=== PATIENT | female | born 1935 | race African-American/Black ===

== ENCOUNTER 2018-07-22 10:00 | Inpatient (IN) ==
[2018-08-05] MEDS ORDERED: Chlorhexidine 4% Topical 120 APPLIC/120 ML Bottle TOPICAL SCH (08:30)
[2018-08-05] MEDS ORDERED: Bupivacaine Liposomal PF 1.3% Inj 20 ML Vial ONE (08:58)
[2018-08-05] MEDS ORDERED: Sodium Chlor 0.9% Inj 500 ML IV.CONT ONE (09:00)
[2018-08-05] MEDS ORDERED: Metoprolol Tartrate 25 MG Tablet PO ONE (09:00)
[2018-08-05] MEDS ORDERED: Chlorhexidine Gluconate 2% 1 Pack (2 Cloths) TOPICAL ONE (09:00)
[2018-08-05] MEDS ORDERED: TRANEXAMIC ACID IV.SIG SCH ×2 (09:00→12:00)
[2018-08-05] MEDS ORDERED: Sodium Chlor 0.9% Inj 80 ML, Bupivacaine Liposo PF 1.3% Inj 20 ML P-ARTICULR SCH ×2 (09:00)
[2018-08-05] MEDS ORDERED: SODIUM CHLOR 0.9% IV.SIG SCH ×2 (09:00→12:00)
[2018-08-05] MEDS ORDERED: Vancomycin Inj 1,250 MG in Sodium Chlor 0.9% Inj 250 ML IV.SIG SCH (09:00)
[2018-08-05] MEDS ORDERED: Bupivacaine Liposomal PF 1.3% Inj 20 ML Vial NERV BLOCK ONE (09:15)
[2018-08-05] MEDS ORDERED: Clindamycin Inj 600 MG/4 ML Vial ONE ×2 (09:43→17:08)
[2018-08-05] MEDS ORDERED: Post-op Orders (for Pharmacy) OTHER STA (09:53)
[2018-08-05] MEDS ORDERED: Tranexamic Acid Inj 0 MG in Sodium Chlor 0.9% Inj 100 ML IV.SIG ONE (09:53)
[2018-08-05] MEDS ORDERED: Bisacodyl 10 MG Supp RECTAL PRN (09:53)
[2018-08-05] MEDS ORDERED: Acetaminophen 325 MG Tablet PO PRN (09:53)
[2018-08-05] MEDS ORDERED: Morphine Inj 4 MG/ML Vial IV.PUSH PRN (09:53)
[2018-08-05] MEDS ORDERED: Aluminum/Magnesium/Simethacone Susp 30 ML UDC PO PRN (09:53)
[2018-08-05] MEDS ORDERED: Clindamycin 600 mg/NS Premix 600 MG/50 ML PIGGYBACK IV.SIG SCH (10:15)
[2018-08-05] MEDS ORDERED: fentaNYL Citrate Inj 250 MCG/5 ML Ampul ONE (10:21)
[2018-08-05] MEDS ORDERED: fentaNYL Citrate Inj 100 MCG/2 ML Ampul ONE (10:21)
[2018-08-05] MEDS ORDERED: Famotidine PF Inj 20 MG/2 ML Vial ONE (10:21)
[2018-08-05] MEDS ORDERED: Ketamine Inj 50 MG/5 ML Syringe IV.PUSH ONE (10:30)
[2018-08-05] MEDS ORDERED: Lidocaine PF 1% Inj 5 ML Syringe INFILTRATN ONE (10:37)
[2018-08-05] MEDS ORDERED: Neostigmine Inj 5 MG/5 ML Syringe IV.PUSH ONE (10:37)
[2018-08-05] MEDS ORDERED: Phenylephrine/NS 1000 MCG/10ML Syringe IV.PUSH ONE (10:37)
[2018-08-05] MEDS ORDERED: Glycopyrrolate Inj 1 MG/5 ML Syringe IV.PUSH ONE (10:37)
[2018-08-05] MEDS ORDERED: hydrALAZINE HCl Inj 20 MG/ML Vial IV.PUSH ONE (10:37)
--- NOTE | 2018-08-05 12:57 | P.DCO ---
- Physical Therapy Physical Therapy: Gait training Knee: Total knee, Protocol: Right, Gait training, Full weight bearing Right Lower Extremity Weight Bearing: Weight bearing as tolerated Right Lower Extremity Range of Motion: Active ROM (Active, active assisted, passive range of motion. Range of motion goal is 0 degrees extension to 130 degrees. Range of motion in the operating room was 0 degrees extension to 140 degrees of flexion.) - Nursing Nursing: Dressing changes Dressing changes: Daily dressing change, Coverderm/Primapore Additional instructions: Do not remove Dermabond Prineo. - Certification Need for Home Health services: I have seen patient Heather Guardado on 08/05/18. My clinical findings support the need for the requested home health care services because: Need for Home Health Services: Deconditioned with increased weakness, Limited ability to care for self, High risk of falls Homebound Certification: I certify that my clinical findings support that this patient is homebound because: Homebound Certification: Post-op weakness, Unsteady gait/balance, Unsafe to leave home unassisted
--- NOTE | 2018-08-05 13:05 | P.OP ---
- Preoperative Diagnosis (1) Rheumatoid arthritis involving right knee - Postoperative Diagnosis (1) Rheumatoid arthritis involving right knee Date of procedure: 08/05/18 Procedure: Right total knee arthroplasty using [place] Triathlon prosthesis (uncemented) Anesthesia: GETA, regional (Adductor canal block), local (Exparel) Surgeon: Oziel Lewis MD Computer Game Tester: BURKE Stephenson Estimated blood loss (mL): 250 Pathology: none sent Operation and Findings: Indications and Findings: This 82-year-old woman has had long-standing rheumatoid arthritis in the knees and other sites. She has had right knee pain at least for the last 2 years. Her ambulation tolerance is come to 2-3 blocks because of the pain. She is not relieved by the use of ambulatory aids. She has been under the care of her rheumatoid arthritis by safety representative giving her anti-inflammatory agents, methotrexate and other treatments. She has not improved with exercise or activity modification and either. Physical findings showed genu valgum with lateral laxity and crepitation throughout the entire range of motion. There is an effusion. X-rays showed severe arthritis with loss of articular cartilage to [id number] on the lateral compartment and to lesser extent the medial compartment. There is some osteopenia. There is some subchondral sclerosis particularly laterally. There are osteophytes. Operative findings: There is significant arthritis in the knee with loss of articular cartilage to [id number] in the lateral compartment and to a lesser extent the medial compartment. There is also patellofemoral involvement. There was pannus evident. The prosthesis used was a [place] Triathlon prosthesis. The femur was a size 3, cruciate retaining, uncemented. The tibial baseplate was a size 3 Tritanium with a 9 mm, cruciate retaining, X3 polyethylene spacer. The patella was a size 32 mm asymmetric Tritanium backed. The patient was brought to the clean-air operating suite after administration of a regional anesthetic by adductor canal block. A spinal anesthetic was administered. The position was supine with a small bolster under the hip on the operative side. A pneumatic tourniquet was applied to the upper thigh. The lower extremity was prepped with alcohol, Hibiclens and ChloraPrep and draped in the usual manner with the knee draped free. An appropriate timeout procedure was carried out. An incision was made from about 3 fingerbreadths above the superior medial pole of patella down the tibial tubercle on the medial side. The incision was deepened through the subcutaneous tissue to the retinacular structures which were exposed medially and laterally. A medial retinacular incision was made from the superior medial pole of patella down the tibial tubercle and up into the quadriceps tendon, splitting it longitudinally in the medial one third. The patella was reflected. The infrapatellar fat pad was debulked. The anterior cruciate ligament was excised. Medial and lateral meniscectomies were initiated. Fenestrations were made in the distal femur and proximal tibia for intramedullary referencing guides. The distal femoral cutting guide and jig were assembled for a 5, 8 mm cut. When this was fit into position,the cutting block was stabilized with pins. The jig was removed. The distal femoral cut was completed with the oscillating saw. The sizing guide was positioned in place along Whitesides line and the epicondylar axis and stabilized with pins. The femoral size was determined as noted above. The 4-in-1 cutting block was positioned in place. Anterior and posterior cuts were made followed by posterior and anterior chamfer cuts taking care to prevent injury to ligamentous structures. Osteophytes were trimmed from the distal femur. A bone plug was placed into the fenestration of the distal femur. The proximal tibia was exposed. The medial and lateral meniscectomies were completed. The proximal tibial cutting guide was positioned in place and stabilized with a pin for rotation. The depth of cut was verified with a stylus off the high side. The cutting block was stabilized with pins. The jig was removed. The depth of cut was verified and adjusted appropriately with the use of the spacer block. The proximal tibial cut was made with the oscillating saw taking care to prevent injury to neurovascular and ligamentous structures. Proximal tibial bone was removed. Local anesthetic was administered with Exparel in the posterior capsule. The tibial baseplate trial was positioned in place. After verifying the appropriate size, the base plate trial was positioned in place along with its spacer. The femoral component was impacted into place. The alignment was checked. The tibial baseplate was pinned in place on the tibia. Attention was directed to the patella. The patella drill guide was positioned in place for the appropriate sized patella. Patellar drilling was then carried out. The trial patella was positioned in place. The knee was taken through a range of motion which was easily 0 extension to 140 degrees. The patella trial was removed. The femoral drill holes were made. The femoral trials were removed. The tibial spacer was removed. A bone plug was placed into the proximal tibia. The tibial punch was impacted through the proximal tibial punch guide. This was all removed followed by placement of the tibial drill guide. The tibial drill holes were made. The guide was removed. The cut ends of bone were cleaned with pulse lavage. The tibial baseplate was impacted into place and seated appropriately. The spacer was inserted. The the femoral component was impacted into place and seated appropriately. The patella component was seated with the patellar vice and tightened appropriately. The knee was taken through a range of motion which was comparable to the previous range of motion with excellent stability in flexion and extension and appropriate patellofemoral tracking. The remainder of the Exparel was injected throughout the knee as a local anesthetic. Drains were brought out the superior lateral aspect of the suprapatellar pouch. Wound closure commenced using 0 Vicryl interrupted [id number] sutures for the capsular and fascial structures, 2-0 Vicryl interrupted simple sutures with buried knots for the subcutaneous tissues and 4-0 Monocryl, continuous subcuticular closure for the skin. The wound was dressed with Dermabond Prineo followed by a dry sterile dressing. Sterile soft roll with a cooling pad and Earnest bandage from the base of the toes to mid thigh were applied. Patient was transferred from the operating room to the recovery room in satisfactory condition having tolerated procedure well. Counts were correct. Specimens: None. Estimated blood loss: 250 mL
[2018-08-05] MEDS ORDERED: *morphine SULFATE 4 MG/ML PERIprocedure ONLY ONE (13:52)
[2018-08-05] MEDS: Ketorolac Inj 30 MG/ML (IVP) Vial IV.PUSH SCH ×2 (14:00→20:29)
--- NOTE | 2018-08-05 14:22 | XR ---
EXAM DATE: 08/05/2018 9:51 AM EDT AGE/SEX: 82 years / Female INDICATIONS: Post-op right knee. CLINICAL DATA: This is the patient's initial encounter. Patient reports that signs and symptoms have been present for 1 day and indicates a pain score of 5/10. MEDICAL/SURGICAL HISTORY: None. None. COMPARISON: No prior exams available for comparison. FINDINGS: Right knee prosthesis in place. There is good position and alignment of the bony structures. The bony structures are grossly intact. Postsurgical changes are demonstrated. CONCLUSION: Good position and alignment of the knee prosthesis. Electronically signed by: Robert Muñoz MD 08/05/2018 2:20 PM EDT
--- NOTE | 2018-08-05 15:42 | P.CON ---
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 Lewis. Patient was seen in PACU. She appears to not acute distress. Says the pain at the surgical site is fairly controlled. She denies any chest pain or shortness of breath, no fever or chills, no cough. No urinary complaints. No nausea vomiting no diarrhea constipation no abdominal pain. Awaiting to go to Ortho floor. No concerns at this time. Review of Systems All other systems reviewed negative except as stated in HPI PMFSH - History History Provided By: Patient - Medical History Medical History: Medical History (Last Reviewed 08/05/18 @ 18:01 by Rabia Garcia MD) High cholesterol History of CVA (cerebrovascular accident) Hx of hysterectomy Hypertension Joint stiffness Pain in right knee Rheumatoid arthritis Wears glasses - Surgical History Surgical History: Surgical History (Last Reviewed 08/05/18 @ 18:01 by Rabia Garcia MD) History of total replacement of both hip joints Hx of rotator cuff surgery - Family History Family History: Family History (Last Updated 08/05/18 @ 18:01 by Rabia Garcia MD) Other Diabetes - Tobacco History Second Hand Smoke Exposure: No Tobacco Use In Past 30 Days: No Smoking Status: Former smoker - Alcohol History How Often Do You Have a Drink Containing Alcohol: Monthly or less - Substance Use History Substance History: No History of Abuse - Travel History Recent Travel in the [place] Within the Last 8 Weeks: No Recent Travel Out of the Country Within the Last 8 Weeks: No Medications and Allergies Active Medications: Active Medications Acetaminophen (Tylenol) 650 mg PO Q6H PRN PRN Reason: Pain Less Than 3 On Scale Hydrocodone Bitart/Acetaminophen ([place] 7.5/325) 1 tab PO Q4H PRN PRN Reason: PAIN SCALE 4 TO 6 MODERATE Hydrocodone Bitart/Acetaminophen ([place] 7.5/325) 2 tab PO Q6H PRN PRN Reason: PAIN SCALE 7 TO 10 SEVERE Al Hydrox/Mg Hydrox/Simethicone (Mag-Al Plus Susp Liq) 30 ml PO Q6H PRN PRN Reason: INDIGESTION Al Hydroxide/Mg Hydroxide (Milk Of Malika Liq) 30 ml PO BID PRN PRN Reason: Mild Constipation Aspirin (Aspirin Chew) 81 mg PO BID [facility] Bisacodyl (Dulcolax Supp) 10 mg RECTAL DAILY PRN PRN Reason: SEVERE CONSITIPATION Chlorhexidine Gluconate (Hibiclens 4% Topical) 1 applicatio TOPICAL ONCE [facility] Stop: 08/09/18 08:29 Diphenhydramine HCl (Benadryl) 25 mg PO Q6H PRN PRN Reason: ITCHING Folic Acid (Folic Acid) 1 mg PO DAILY [facility] Tranexamic Acid 787 mg/ Sodium (Chloride) 107.87 mls @ 200 mls/hr IV.SIG ONCE [facility] Stop: 08/06/18 08:59 Last Infusion: 08/05/18 11:36 Dose: Infused Vancomycin HCl 1,250 mg/ (Sodium Chloride) 262.5 mls @ 250 mls/hr IV.SIG INTENSIVE CARE UNIT NURSE [facility] Stop: 08/08/18 08:59 Last Infusion: 08/05/18 11:36 Dose: Infused Lactated Ringer's (Lr 1000 Ml Inj) 1,000 mls @ 30 mls/hr IV.CONT .Q24H ONE Stop: 08/06/18 08:59 Last Admin: 08/05/18 09:07 Dose: 30 mls/hr Sodium Chloride (Ns Inj) 500 mls @ 30 mls/hr IV.CONT .[id number] ONE Stop: 08/06/18 01:39 Lactated Ringer's (Lr 1000 Ml Inj) 1,000 mls @ 80 mls/hr IV.CONT .[id number] [facility] Last Admin: 08/05/18 13:50 Dose: 80 mls/hr Clindamycin/Sodium Chloride (Cleocin 600 Mg/Ns Premix) 600 mg in 50 mls @ 100 mls/hr IV.SIG Q6H [facility] Stop: 08/06/18 11:29 Clindamycin/Sodium Chloride (Cleocin 600 Mg/Ns Premix) 600 mg in 50 mls @ 100 mls/hr IV.SIG INTENSIVE CARE UNIT NURSE [facility] Stop: 08/05/18 18:00 Ketorolac Tromethamine (Toradol Inj) 15 mg IV.PUSH Q6H [facility] Stop: 08/07/18 08:01 Last Admin: 08/05/18 14:00 Dose: 15 mg Lactulose (Lactulose Liq) 30 ml PO DAILY PRN PRN Reason: SEVERE CONSITIPATION Miscellaneous Information ([facility] Nursing Information) 0 each OTHER UNSCH PRN PRN Reason: SEE LABEL COMMENTS Stop: 08/06/18 13:15 Morphine Sulfate (Morphine Inj) 2 mg IV.PUSH Q3H PRN PRN Reason: BREAKTHROUGH PAIN Multivitamins (Theragran) 1 tab PO DAILY [facility] Ondansetron HCl (Zofran Odt) 4 mg PO Q6H PRN PRN Reason: NAUSEA OR VOMITING Patient Own Medication (Patient Own Medication) 0 each PO DAILY [facility] Pt Own Med ( (Valsartan 80 Mg)) 0 each PO DAILY [facility] Pravastatin Sodium (Pravachol) 40 mg PO DAILY [facility] Senna/Docusate Sodium (Wanda-Colace) 1 tab PO BID [facility] Sennosides (Senokot) 17.2 mg PO BID PRN PRN Reason: Moderate Constipation Sodium Chloride (Ns Flush) 2 ml IV.FLUSH PRN PRN PRN Reason: FLUSH AFTER USING IV ACCESS Sodium Chloride (Ns Flush) 2 ml IV.FLUSH BID [facility] Vitamin D (Vitamin D3) 2,000 unit PO DAILY [facility] Zolpidem Tartrate (Ambien) 5 mg PO HS PRN PRN Reason: INSOMNIA Allergies Allergy/AdvReac Type Severity Reaction Status Date / Time penicillin G Allergy Severe SOB; HIVES Verified 08/05/18 08:36 codeine Allergy Intermediate ONLY IN Verified 07/10/18 08:19 HIGH DOSES Home Medications Medication Instructions Recorded Confirmed Type cholecalciferol (vitamin D3) 2,000 unit PO DAILY 07/10/18 08/05/18 History [Vitamin D3] echinacea 380 mg PO BID 07/10/18 08/05/18 History folic acid 1 mg PO DAILY 07/10/18 08/05/18 History lovastatin 40 mg PO DAILY 07/10/18 08/05/18 History methotrexate sodium 7.5 mg PO QWEEK 07/10/18 08/05/18 History [id number]-[id number]-FA-vit K 1 tab PO DAILY 07/10/18 08/05/18 History [Adults Multivitamin] potassium 99 mg PO DAILY 07/10/18 08/05/18 History valsartan [Diovan] 80 mg PO DAILY 07/10/18 08/05/18 History Physical Exam Vital signs: Vital Signs 08/05/18 09:04 08/05/18 13:17 08/05/18 14:25 Temperature 97.6 F Pulse Rate 60 104 H Respiratory Rate 16 17 Blood Pressure 172/80 H Pulse Oximetry 100 100 100 Intake & Output 08/04/18 08/05/18 08/05/18 18:59 06:59 18:59 Intake Total 1600.37 / 1600.37 Output Total 350 / 350 Balance 1250.37 / 1250.37 Weight 78.7 kg Intake: IV 370.37 / 370.37 Cyklokapron Inj 787 MG In NS 107.87 / 107.87 Inj 100 ML @ 200 mls/hr IV.SIG ONCE [facility] Rx#:[id number] Vancomycin Inj 1,250 MG In NS 262.5 / 262.5 Inj 250 ML @ 250 mls/hr IV.SIG INTENSIVE CARE UNIT NURSE [facility] Rx#:[id number] Anesthesia Amount 1230 / 1230 Output: Estimated Blood Loss 250 / 250 Wound Drainage 100 / 100 # 1 Right Knee Hemovac 100 / 100 Other: Weight On Admission 78.7 kg Narrative: GENERAL: Very pleasant 82-year-old female well-nourished well-developed appears to not acute distress. SKIN: Warm and dry. HEAD: Atraumatic. Normocephalic. EYES: Pupils equal and round. No scleral icterus. No injection or drainage. ENT: No nasal bleeding or discharge. Mucous membranes pink and moist. NECK: Trachea midline. No JVD. CARDIOVASCULAR: Regular rate and rhythm. RESPIRATORY: No accessory muscle use. Clear to auscultation. Breath sounds equal bilaterally. GASTROINTESTINAL: Abdomen soft, non-tender, nondistended. Hepatic and splenic margins not palpable. MUSCULOSKELETAL: Right knee status post surgery dressing CDI, neurovascular intact. Extremities without clubbing, cyanosis, or edema. No obvious deformities. NEUROLOGICAL: Awake and alert. No obvious cranial nerve deficits. Motor grossly within normal limits. Five out of 5 muscle strength in the arms and legs. Normal speech. PSYCHIATRIC: Appropriate mood and affect; insight and judgment normal. Assessment and Plan - Plan Right knee pain status post right knee total replacement. Management per orthopedic doctor. Monitor vital signs. Monitor H&H after surgery. History of CVA with no residual deficit. History of rheumatoid arthritis. Hypertension, hyperlipidemia. Resume home medications as appropriate. Monitor H&H after surgery. Monitor vital signs. Thank you for this consultation.
[2018-08-05] MEDS: Clindamycin 600 mg/NS Premix 600 MG/50 ML PIGGYBACK IV.SIG SCH ×2 (17:10→22:36)
[2018-08-05] MEDS: Senna/Docusate Sodium 8.6/50 MG Tablet PO SCH (20:30)
[2018-08-05] MEDS ORDERED: ECHINACEA 380 MG PO SCH (21:00)
[2018-08-05] MEDS: Zolpidem Tartrate 5 MG Tablet PO PRN (22:35)
[2018-08-06] MEDS: Clindamycin 600 mg/NS Premix 600 MG/50 ML PIGGYBACK IV.SIG SCH ×2 (05:02→10:16)
[2018-08-06] MEDS: Ketorolac Inj 30 MG/ML (IVP) Vial IV.PUSH SCH ×4 (05:02→20:40)
--- NOTE | 2018-08-06 06:10 | P.PNOP ---
Subjective Interval history: Postop day #1 She is doing well. She has minimal complaints related to the knee at this time. Physical therapy reports that the ambulation distance was 60 feet. The range of motion was 0 extension to 60 of flexion. Physical Exam Vital signs: Vital Signs 08/05/18 06:45 08/05/18 09:04 08/05/18 13:17 Temperature 98.0 F 97.6 F Pulse Rate 85 60 104 H Respiratory Rate 14 16 Blood Pressure 177/81 H 172/80 H Pulse Oximetry 95 100 100 08/05/18 13:30 08/05/18 13:45 08/05/18 14:00 Temperature Pulse Rate 80 72 67 Respiratory Rate 16 16 18 Blood Pressure 157/71 H 141/67 H 138/65 Pulse Oximetry 97 97 95 08/05/18 14:15 08/05/18 14:25 08/05/18 14:30 Temperature Pulse Rate 68 68 Respiratory Rate 18 17 18 Blood Pressure 138/67 141/69 H Pulse Oximetry 94 L 100 94 L 08/05/18 14:45 08/05/18 15:00 08/05/18 15:30 Temperature Pulse Rate 67 70 Respiratory Rate 18 18 18 Blood Pressure 128/65 137/67 Pulse Oximetry 96 95 100 08/05/18 16:00 08/05/18 16:30 08/05/18 17:00 Temperature 97.8 F Pulse Rate 72 89 Respiratory Rate 19 19 Blood Pressure 141/72 H 159/89 H Pulse Oximetry 95 96 95 08/05/18 17:30 08/05/18 20:00 08/06/18 00:00 Temperature 98.9 F 98.8 F Pulse Rate 87 91 H Respiratory Rate 18 18 Blood Pressure 173/83 H 173/83 H Pulse Oximetry 99 97 97 08/06/18 02:08 Temperature Pulse Rate Respiratory Rate 17 Blood Pressure Pulse Oximetry Intake & Output 08/05/18 08/05/18 08/06/18 06:59 18:59 06:59 Intake Total 1650.37 / 1650.37 1050 / 1050 Output Total 350 / 350 180 / 180 Balance 1300.37 / 1300.37 870 / 870 Weight 78.7 kg Intake: IV 420.37 / 420.37 1050 / 1050 LR 1000 mL Inj 1,000 ML @ 80 1000 / 1000 mls/hr IV.CONT .[id number] [facility] Rx# :[id number] Cleocin 600 mg/NS Premix 600 mg 50 / 50 50 / 50 In 50 ml @ 100 mls/hr IV.SIG Q6H [facility] Rx#:[id number] Cyklokapron Inj 787 MG In NS 107.87 / 107.87 Inj 100 ML @ 200 mls/hr IV.SIG ONCE [facility] Rx#:[id number] Vancomycin Inj 1,250 MG In NS 262.5 / 262.5 Inj 250 ML @ 250 mls/hr IV.SIG [facility] [employer] [facility] Rx#:[id number] Anesthesia Amount 1230 / 1230 Output: Estimated Blood Loss 250 / 250 Wound Drainage 100 / 100 180 / 180 # 1 Right Knee Hemovac 100 / 100 180 / 180 Other: # Voids 1 # Incontinent Voids 1 Date of Last Bowel Movement 08/05/18 Weight On Admission 78.7 kg Narrative: She is resting comfortably, supine in bed. The dressing is dry and intact. The neurovascular status is intact. She demonstrates that she can easily move the knee and flex it without much difficulty. Results - Labs Laboratory Results - last 24 hr 08/05/18 08:43 Blood Type B Positive Blood Type Recheck Not needed Antibody Screen Negative - Imaging Impressions Knee X-Ray 08/05/18 09:51 CONCLUSION: Good position and alignment of the knee prosthesis. - Procedures Right total knee arthroplasty using [place] Triathlon prosthesis (uncemented) on 08/06/2018 Assessment and Plan - Ortho Post Op Day # 1 - Problem List (1) Status post total right knee replacement not using cement Code(s): Z96.651 - Presence of right artificial knee joint Status: Acute Onset Date: ~08/05/18 Plan: Continue postop care and PT. - Assessment and Plan Condition: Good. Orthopedically stable. DVT prophylaxis: TEDs, aspirin, sequentials. Discharge plans: Home with home health care. An appointment was scheduled through the office. Prescriptions: [place] 7.5/325; Patient is having significant pain caused by a total knee arthroplasty which will last more than 3 days. Trial of Tylenol has not helped. I believe that it is medically necessary to treat patients pain because it is affecting patients ability to participate in postoperative rehabilitation and perform activities of daily living in a comfortable and efficient manner.
[2018-08-06 07:14] LABS: Hematocrit 29.1 % (35.0-46.0); Hemoglobin 9.6 gm/dL (11.6-15.3)
[2018-08-06] MEDS: Folic Acid 1 MG Tablet PO SCH (08:42)
[2018-08-06] MEDS: Senna/Docusate Sodium 8.6/50 MG Tablet PO SCH ×2 (08:42→20:40)
[2018-08-06] MEDS ORDERED: VALSARTAN 80 MG PO SCH (09:00)
--- NOTE | 2018-08-06 14:47 | P.PN ---
Subjective Interval history: Patient feels much better today no more pain in her knee. No nausea vomiting no diarrhea or constipation. No cough fever or chills. Improving with physical therapy. Possible discharge tomorrow. Physical Exam Vital signs: Vital Signs 08/05/18 15:00 08/05/18 15:30 08/05/18 16:00 Temperature Pulse Rate 70 72 Respiratory Rate 18 18 19 Blood Pressure 137/67 141/72 H Pulse Oximetry 95 100 95 08/05/18 16:30 08/05/18 17:00 08/05/18 17:30 Temperature 97.8 F Pulse Rate 89 Respiratory Rate 19 Blood Pressure 159/89 H Pulse Oximetry 96 95 99 08/05/18 20:00 08/06/18 00:00 08/06/18 02:08 Temperature 98.9 F 98.8 F Pulse Rate 87 91 H Respiratory Rate 18 18 17 Blood Pressure 173/83 H 173/83 H Pulse Oximetry 97 97 08/06/18 04:00 08/06/18 05:32 08/06/18 08:00 Temperature 99.2 F 98.8 F Pulse Rate 73 75 Respiratory Rate 20 17 16 Blood Pressure 118/57 L 135/73 Pulse Oximetry 94 L 97 08/06/18 12:00 Temperature 98.4 F Pulse Rate 74 Respiratory Rate 14 Blood Pressure 115/56 L Pulse Oximetry 98 Intake & Output 08/05/18 08/06/18 08/06/18 18:59 06:59 18:59 Intake Total 1650.37 / 1650.37 1100 / 1100 50 / 50 Output Total 350 / 350 260 / 260 Balance 1300.37 / 1300.37 840 / 840 50 / 50 Weight 78.7 kg Intake: IV 420.37 / 420.37 1100 / 1100 50 / 50 LR 1000 mL Inj 1,000 ML @ 80 1000 / 1000 mls/hr IV.CONT .[id number] [facility] Rx# :[id number] Cleocin 600 mg/NS Premix 600 mg 50 / 50 100 / 100 50 / 50 In 50 ml @ 100 mls/hr IV.SIG Q6H [facility] Rx#:[id number] Cyklokapron Inj 787 MG In NS 107.87 / 107.87 Inj 100 ML @ 200 mls/hr IV.SIG ONCE [facility] Rx#:[id number] Vancomycin Inj 1,250 MG In NS 262.5 / 262.5 Inj 250 ML @ 250 mls/hr IV.SIG ON SITE [employer] [facility] Rx#:[id number] Anesthesia Amount 1230 / 1230 Output: Estimated Blood Loss 250 / 250 Wound Drainage 100 / 100 260 / 260 # 1 Right Knee Hemovac 100 / 100 260 / 260 Other: # Voids 1 # Incontinent Voids 1 Date of Last Bowel Movement 08/05/18 Weight On Admission 78.7 kg Narrative: GENERAL: Very pleasant 82-year-old female well-nourished well-developed appears to not acute distress. CARDIOVASCULAR: Regular rate and rhythm. RESPIRATORY: No accessory muscle use. Clear to auscultation. Breath sounds equal bilaterally. GASTROINTESTINAL: Abdomen soft, non-tender, nondistended. Hepatic and splenic margins not palpable. MUSCULOSKELETAL: Right knee status post surgery dressing CDI, neurovascular intact. Extremities without clubbing, cyanosis, or edema. No obvious deformities. NEUROLOGICAL: Awake and alert. No obvious cranial nerve deficits. Motor grossly within normal limits. Five out of 5 muscle strength in the arms and legs. Normal speech. PSYCHIATRIC: Appropriate mood and affect; insight and judgment normal. Results - Labs CBC & Chem 7: 08/06/18 06:54 Laboratory Results - last 24 hr 08/06/18 06:54 Hgb 9.6 L Hct 29.1 L - Procedures Right total knee arthroplasty using [place] Triathlon prosthesis (uncemented) on 08/06/2018 Assessment and Plan - Plan Right knee pain status post right knee total replacement. Management per orthopedic doctor. Monitor vital signs. Monitor H&H after surgery. H/H stable. Patient has a h/o anemia History of CVA with no residual deficit. History of rheumatoid arthritis. Hypertension, hyperlipidemia. Resume home medications as appropriate. Monitor H&H after surgery, stable . Monitor vital signs. Thank you for this consultation. Appears stable medically. Plan to discharge tomorrow. Patient to follow-up with PCP and consultants as outpatient. Hospitalist will sign off.
[2018-08-06] MEDS: Zolpidem Tartrate 5 MG Tablet PO PRN (23:29)
[2018-08-07] MEDS: Ketorolac Inj 30 MG/ML (IVP) Vial IV.PUSH SCH ×2 (02:36→08:26)
--- NOTE | 2018-08-07 06:07 | P.PNOP ---
Subjective Interval history: Postop day #2 She is doing well. She has minimal complaints related to the knee at this time. She is very happy with the progress. She feels that she is ready to go home. Physical therapy reports that the ambulation distance was 120 feet. The range of motion was 0 degrees extension to 84 degrees of flexion. Physical Exam Vital signs: Vital Signs 08/06/18 08:00 08/06/18 12:00 08/06/18 16:00 Temperature 98.8 F 98.4 F 97.9 F Pulse Rate 75 74 65 Respiratory Rate 16 14 14 Blood Pressure 135/73 115/56 L 118/63 Pulse Oximetry 97 98 98 08/06/18 20:00 08/06/18 21:10 08/06/18 22:30 Temperature 98.4 F Pulse Rate 67 Respiratory Rate 18 17 17 Blood Pressure 122/59 L Pulse Oximetry 96 08/07/18 00:00 08/07/18 04:00 Temperature 98.2 F 98.3 F Pulse Rate 78 73 Respiratory Rate 18 17 Blood Pressure 131/63 117/58 L Pulse Oximetry 98 98 Intake & Output 08/06/18 08/06/18 08/07/18 06:59 18:59 06:59 Intake Total 1100 / 1100 1050 / 1050 1060 / 1060 Output Total 260 / 260 90 / 90 Balance 840 / 840 960 / 960 1060 / 1060 Intake: IV 1100 / 1100 1050 / 1050 LR 1000 mL Inj 1,000 ML @ 80 1000 / 1000 1000 / 1000 mls/hr IV.CONT .[id number] [facility] Rx# :[id number] Cleocin 600 mg/NS Premix 600 mg 100 / 100 50 / 50 In 50 ml @ 100 mls/hr IV.SIG Q6H [facility] Rx#:[id number] Oral 1060 / 1060 Output: Wound Drainage 260 / 260 90 / 90 # 1 Right Knee Hemovac 260 / 260 90 / 90 Other: # Voids 2 Date of Last Bowel Movement 08/05/18 Narrative: She is resting comfortably, supine in bed. The dressing is dry and intact. Her neurovascular status is intact. Results - Labs CBC & Chem 7: 08/06/18 06:54 Laboratory Results - last 24 hr 08/06/18 06:54 Hgb 9.6 L Hct 29.1 L - Procedures Right total knee arthroplasty using [place] Triathlon prosthesis (uncemented) on 08/06/2018 Assessment and Plan - Assessment and Plan Condition: Good. Orthopedically stable. DVT prophylaxis: TEDs, aspirin, sequentials. Discharge plans: Home with home health care. An appointment was scheduled through the office. Prescriptions: [place] 7.5/325; Patient is having significant pain caused by a total knee arthroplasty which will last more than 3 days. Trial of Tylenol has not helped. I believe that it is medically necessary to treat patients pain because it is affecting patients ability to participate in postoperative rehabilitation and perform activities of daily living in a comfortable and efficient manner.
[2018-08-07 06:13] VITALS: RESP 18
--- NOTE | 2018-08-07 06:26 | P.DS ---
Date of admission: 08/05/18 07:38 Primary care physician: Aminata Robledo MD Attending physician on discharge: Oziel Lewis Anticipated date of discharge: 08/07/18 Brief History from admission: This 82-year-old woman has had long-standing rheumatoid arthritis which has involved her right knee. She has had treatment with anti-inflammatory agents, analgesics, methotrexate and also ambulatory aids. This knee has not responded to conservative measures. She has limitation of ambulation. She has interference with activities of daily living. She has rest pain. Physical findings showed severe deformity in the knee with crepitation on range of motion, laxity, and effusion. X-rays showed severe arthritis in the knee with loss of articular cartilage to bone on bone, eburnation and multiple osteophytes. DS: Diagnosis - Discharge Diagnosis (1) Status post total right knee replacement not using cement Status: Acute Diagnosis: Principal (2) Rheumatoid arthritis involving right knee Status: Chronic Diagnosis: Principal DS: Medications - Discharge Medications Prescriptions: hydrocodone-acetaminophen 1 tab PO Q4H PRN 7 Days #42 tab PRN Reason: Pain, Severe DS: Summary Hospital Course: The patient was admitted as noted above. The above noted operative procedure was carried out that day. Preoperatively prophylactic antibiotics were administered Ancef according to protocol. These were continued postoperatively. The patient also received tranexamic acid to help with hemostasis according to protocol. In the postanesthesia care unit mechanical methods of DVT prophylaxis in the form of SADA stockings and sequentials were initiated. Physical therapy was initiated on the day of surgery. On postoperative day #1 physical therapy continued. DVT prophylaxis with aspirin 81 mg was initiated at this time. The patient continued physical therapy throughout the hospitalization. The distance walked and range of motion improved throughout the hospitalization. The patient was discharged on postoperative day 2 with the disposition being to home with home health care. An appointment for follow-up was made prior to admission. - Time Spent with Patient Total time spent providing and/or coordinating discharge services: Less than 30 minutes - Quality: VTE Deep Vein Thrombosis/Pulmonary Embolism Present on Admission: No Exam Vital signs: Vital Signs 08/06/18 08:00 08/06/18 12:00 08/06/18 16:00 Temperature 98.8 F 98.4 F 97.9 F Pulse Rate 75 74 65 Respiratory Rate 16 14 14 Blood Pressure 135/73 115/56 L 118/63 Pulse Oximetry 97 98 98 08/06/18 20:00 08/06/18 21:10 08/06/18 22:30 Temperature 98.4 F Pulse Rate 67 Respiratory Rate 18 17 17 Blood Pressure 122/59 L Pulse Oximetry 96 08/07/18 00:00 08/07/18 04:00 Temperature 98.2 F 98.3 F Pulse Rate 78 73 Respiratory Rate 18 18 Blood Pressure 131/63 117/58 L Pulse Oximetry 98 98 Intake & Output 08/06/18 08/06/18 08/07/18 06:59 18:59 06:59 Intake Total 1100 / 1100 1050 / 1050 1060 / 1060 Output Total 260 / 260 90 / 90 Balance 840 / 840 960 / 960 1060 / 1060 Intake: IV 1100 / 1100 1050 / 1050 LR 1000 mL Inj 1,000 ML @ 80 1000 / 1000 1000 / 1000 mls/hr IV.CONT .[id number] [facility] Rx# :[id number] Cleocin 600 mg/NS Premix 600 mg 100 / 100 50 / 50 In 50 ml @ 100 mls/hr IV.SIG Q6H [facility] Rx#:[id number] Oral 1060 / 1060 Output: Wound Drainage 260 / 260 90 / 90 # 1 Right Knee Hemovac 260 / 260 90 / 90 Other: # Voids 2 Date of Last Bowel Movement 08/05/18 Narrative: She is resting comfortably, supine in bed. The dressing is dry and intact. Her neurovascular status is intact. Results Procedures completed during hospitalization: Right total knee arthroplasty using [place] Triathlon prosthesis (uncemented) on 08/06/2018 Completed studies during hospitalization: Knee X-Ray 08/05/18 09:51 CONCLUSION: Good position and alignment of the knee prosthesis. Labs on day of discharge: Labs from last 24 hours 08/06/18 06:54 Hgb 9.6 L Hct 29.1 L - Impressions ITS Impressions Knee X-Ray 08/05/18 09:51 CONCLUSION: Good position and alignment of the knee prosthesis. Discharge Plan - Discharge Disposition Patient Disposition: W/Home Health Service - Discharge Condition Condition: Stable - Discharge Order Discharge Orders: Discharge Order (Routine); Ordered 08/07/18 Ordered By: Oziel Quinonez Clear for Discharge (Routine); Ordered 08/06/18 Ordered By: Rabia Garcia - Discharge Details Anticipated Discharge Date: 08/07/18 - Physicians Team Primary Care Provider: Aminata Robledo Attending Provider: Oziel Lewis Other Providers: Rabia Garcia MD ; [facility] - Rxs /Orders / Referrals /Forms Prescriptions: New hydrocodone-acetaminophen 7.5-325 mg Tablet 1 tab PO Q4H PRN (Reason: Pain, Severe) 7 Days Qty: 42 RF: 0 Continue cholecalciferol (vitamin D3) [Vitamin D3] 2,000 unit Tablet 2,000 unit PO DAILY echinacea 380 mg Capsule 380 mg PO BID folic acid 1 mg Tablet 1 mg PO DAILY lovastatin 40 mg Tablet 40 mg PO DAILY methotrexate sodium 2.5 mg Tablet 7.5 mg PO QWEEK potassium 99 mg Tablet 99 mg PO DAILY valsartan [Diovan] 80 mg Tablet 80 mg PO DAILY No Action [id number] [Adults Multivitamin] 18 mg iron-400 mcg-25 mcg Tablet 1 tab PO DAILY Referrals: Oziel Lewis MD [Physician] - See Instructions Aminata Robledo MD [Primary Care Provider] - See Instructions - Discharge Instructions Patient Printed Instructions: How to Choose and Use a Walker (GEN), Pain Management After Surgery (DC), Knee Replacement (DC) Additional Instructions: Full weight bearing Canvas Knee splint for use at night while in bed Take medication as prescribed Follow up with Dr Lewis as directed
[2018-08-07 06:52] LABS: Hematocrit 28.2 % (35.0-46.0); Hemoglobin 9.2 gm/dL (11.6-15.3)
[2018-08-07 08:24] VITALS: BP 122/59; PULSE 71; TEMP 98.5; O2SAT 96
[2018-08-07] MEDS: Folic Acid 1 MG Tablet PO SCH (08:27)
[2018-08-07] MEDS: Senna/Docusate Sodium 8.6/50 MG Tablet PO SCH (08:27)
== END 2018-08-07 15:56 | disposition home health service (06) ==
LOC: HSDI 08-05 07:38 → N06 08-05 17:41
PROVIDERS: ADMIT Orthopaedic Surgery; ATTEND Orthopaedic Surgery